=== PATIENT | female | born 1990 | race American Indian/Alaskan Native ===

== ENCOUNTER 2018-12-14 10:54 | Emergency (ER) | payer OTHER ==
[2018-12-14 11:08] VITALS: BMI 32.9
--- NOTE | 2018-12-14 12:57 | US ---
Date of service: 12/14/2018 PROCEDURE: OB Pelvic Ultrasound HISTORY: Suspect ROM COMPARISON: None available. FINDINGS: Transabdominal ultrasonography was performed for evaluation of amniotic fluid volume and presentation as per referring physician request UTERUS: A single viable intrauterine gestation is identified in cephalic lie with amniotic fluid index measuring 8.49 cm (listed normal range 7.8-26.7). cardiac tears recorded 160 beats per minute. OTHER FINDINGS: None. IMPRESSION: SUNDEEP is 8.49 cm, single viable intrauterine gestation in cephalic lie.
[2018-12-14 18:48] VITALS: BP 108/61; PULSE 90; O2SAT 100
== END 2018-12-14 14:00 | disposition home or self-care (01) ==
LOC: H.EROB2 10:54 → H.L&D 10:55 → H.EROB2 14:00
DX: O34.63 Maternal care for abnormality of vagina, third trimester (principal); N89.8 Other specified noninflammatory disorders of vagina; Z3A.36 36 weeks gestation of pregnancy